=== PATIENT | male | born 1995 | race Caucasian/White ===

== ENCOUNTER 2022-07-10 14:58 | Outpatient (CLI) | payer BC, SELFPAY ==
[2022-07-10 19:15] LABS: Amphetamine Screen Urine Negative (Negative); Barbiturate Screen Urine Negative (Negative); Benzodiazepines Screen Urine Negative (Negative); Cannabinoid Screen Urine Negative (Negative); Cocaine Screen Urine Negative (Negative); Methadone Screen Urine Negative (Negative); Methamphetamines Screen Urine Negative (Negative); Opiate Screen Urine Negative (Negative); Oxycodone Screen Urine Negative (Negative); Phencyclidine Screen Urine Negative (Negative); Tricyclic Antidepressant Urine Negative (Negative)
== END 2022-07-10 14:59 | disposition home or self-care (01) ==
LOC: NFLDREF 15:01
PROVIDERS: PCP Family Medicine; Visit Provider Family Medicine
DX: F90.0 Attention-deficit hyperactivity disorder, predominantly inattentive type (principal)
CPT/HCPCS: 80306

== ENCOUNTER 2023-11-03 20:15 | Outpatient (CLI) | payer MEDICAID, SELFPAY | END 2023-11-03 20:16 | disposition home or self-care (01) | LOC: AMB 11-08 02:41 | PROVIDERS: PCP Family Medicine; Visit Provider Emergency Medicine Emergency Medical Services | DX: R45.851 Suicidal ideations (principal) | CPT/HCPCS: A0425; A0429 ==

== ENCOUNTER 2024-02-22 19:27 | Emergency (ER) | payer MEDICAID, SELFPAY ==
[2024-02-22 19:33] VITALS: BP 152/110; PULSE 114; RESP 16; TEMP 36.6; O2SAT 94; BMI 25.4
[2024-02-22 20:15] LABS: Basophils Absolute Auto 0.01 K/uL (0.00-0.30); Basophils Percent Auto 0.2 % (0.0-3.0); Eosinophils Absolute Auto 0.02 K/uL (0.00-0.50); Eosinophils Percent Auto 0.3 % (0.0-7.0); Hematocrit 45.7 % (37.0-53.0); Hemoglobin* 15.7 gm/dL (13.5-17.5); Immature Granulocytes Abs Auto 0.01 K/uL (0.00-0.30); Immature Granulocytes Pct Auto 0.2 %; Lymphocytes Absolute Auto 2.19 K/uL (0.90-2.90); Lymphocytes Percent Auto 35.9 % (20-44); Mean Corpuscular HGB Conc 34 gm/dL (32-36); Mean Corpuscular Hemoglobin 33 pg (26-34); Mean Corpuscular Volume 95 fL (80-100); Monocytes Percent Auto 6.6 % (0.0-11.0); Neutrophils Absolute Auto 3.47 K/uL (1.7-7.0); Neutrophils Percent Auto 56.8 % (42.0-72.0); Platelet Count* 240 K/uL (140-440); RDW Coefficient of Variation % 12.9 % (11.5-15.5); Red Blood Count 4.83 m/uL (4.30-5.90)
[2024-02-22 20:28] LABS: Slide Review Reflex No
[2024-02-22 20:29] LABS: Chloride* 104 mmol/L (96-114); Potassium* 3.7 mmol/L (3.6-5.1); Sodium* 143 mmol/L (135-149)
[2024-02-22 20:30] VITALS: BP 119/77; PULSE 103
--- NOTE | 2024-02-22 20:30 | ED_ITS ---
HPI - Psych General Date Seen: 02/22/24 <Federico Valenzuela - Last Filed: 02/23/24 16:09> Chief Complaint: Psychiatric Problem/Disorder <Federico Valenzuela - Last Filed: 02/23/24 16:09> Stated Complaint: Mental health <Federico Valenzuela - Last Filed: 02/23/24 16:09> Time Seen by Provider: 02/22/24 19:29 <Federico Valenzuela - Last Filed: 02/23/24 16:09> Source: patient <Federico P Nicolas - Last Filed: 02/23/24 16:09> Mode of arrival: ambulatory <Federico Valenzuela - Last Filed: 02/23/24 16:09> Limitations: no limitations <Federico Valenzuela - Last Filed: 02/23/24 16:09> History of Present Illness HPI Narrative: Patient is a 28-year-old male presenting to the emergency department for a mental health evaluation. He is brought in by his friend. He states he has been having issues on home for the past few days. Him and his ex girlfriend recently broke up also. Today it he drink a L of fireball whiskey an also admits to drinking heavily yesterday. Last had the alcohol earlier this morning. He was depressed and put a gun up to his head but then put it down and called his friend who brought him to the emergency department. He does state he has a history of alcohol use disorder and was sober for 6 months but relapsed 3 months ago. Today his mom told him she wanted him gone in out of the house. He states he does have a place to stay at the moment. He is not sure if he will hurt himself if he goes home or not. <Federico Valenzuela DO - Last Filed: 02/23/24 16:09> Related Data Allergies/Adverse Reactions: Allergies Allergy/AdvReac Type Severity Reaction Status Date / Time atomoxetine Allergy Intermediate vomiting Verified 10/26/23 11:18 and cold sweats <Federico Valenzuela DO - Last Filed: 02/23/24 16:09> Review of Systems Status of ROS: Reports: 10 or more systems reviewed and unremarkable except as noted in History and below <Federico Valenzuela DO - Last Filed: 02/23/24 16:09> [facility] Medical History: Medical History Major depressive disorder, single episode, in full remission ?F32.5 - Major depressive disorder, single episode, in full remission (ICD- 10) ADHD, predominantly inattentive type ?F90.0 - Attention-deficit hyperactivity disorder, predominantly inattentive type (ICD-10) Anxiety ?F41.9 - Anxiety disorder, unspecified (ICD-10) <Federico Valenzuela DO - Last Filed: 02/23/24 16:09> Surgical History: Surgical History S/P orchiopexy ?Z98.890 - Other specified postprocedural states (ICD-10) History of tonsillectomy and adenoidectomy (05/07/09) ?Z90.89 - Acquired absence of other organs (ICD-10) <Federico Valenzuela DO - Last Filed: 02/23/24 16:09> Social History: Social History Narrative: Alcohol abuse - see note from 03/12/22, has quit drinking, single, no kids What is your current living situation?: I presently have a place to live Problems where you live: no known problems In the past 12 months, utilities in danger of being shut off: no In past 12 months, lack of transportation kept you from medical appts, meetings, work, or getting things needed for daily living: no In the past 12 mos, have been you worried that your food would run out before you had money to buy more?: never true In the past 12 mos, the food you bought just didn't last and you didn't have money to buy more?: never true Smoking Status: Never smoker How often do you have a drink containing alcohol: 4 or more times a week How many standard drinks containing alcohol do you have on a typical day: 10 or more How often do you have six or more drinks on one occasion: Daily or almost daily AUDIT-C Alcohol total score: 12 Non-prescribed substance use: denies use How often does anyone, including family, friends and others, physically hurt you : never How often does anyone, including family, friends and others, insult or talk down to you: never How often does anyone, including family, friends and others, threaten you with harm: never How often does anyone, including family, friends and others, scream or curse at you: never Little interest or pleasure in doing things: not at all Feeling down, depressed, or hopeless: not at all <Federico Valenzuela DO - Last Filed: 02/23/24 16:09> Exam Narrative: Exam Narrative: Const: Well-nourished, Well-developed, in mild distress Eyes: PERRL, no conjunctival injection, and symmetrical lids HENT: Atraumatic external nose and ears. Moist mucous membranes. Neck: Symmetric, trachea midline, No thyromegaly. CVS: RRR, No murmurs or gallops. Peripheral pulses 2+ and equal in all extremities RESP: Unlabored respiratory effort. Clear to auscultation bilaterally. GI: Nontender/Nondistended, No rebound or guarding. MSK:Extremities w/o deformity, Normal Active ROM Skin: Warm, Dry. No rashes or lesions. Neuro: Normal Muscle tone, No focal neurological deficits. Psych: Awake, Alert, & Oriented x3. Appropriate mood and affect. <Federico Valenzuela DO - Last Filed: 02/23/24 16:09> Const: Vital Signs, click to edit/add: Vital Signs - 24 hr 02/22/24 19:33 02/22/24 20:30 02/23/24 00:54 Temperature 97.9 F 97.7 F Pulse Rate [Pulse Oximeter] 114 H 103 H 98 Respiratory Rate 16 16 Blood Pressure [Ri ght Upper Arm] 152/110 H 119/77 101/81 Pulse Oximetry 94 98 Oxygen Delivery Me thod Room Air Room Air 02/23/24 02:54 02/23/24 04:25 Temperature 97.8 F Pulse Rate [Pulse Oximeter] 88 109 H Respiratory Rate 16 18 Blood Pressure [Ri ght Upper Arm] 126/81 Pulse Oximetry 98 98 Oxygen Delivery Me thod Room Air Room Air <Federico Valenzuela DO - Last Filed: 02/23/24 16:09> Vital Signs, click to edit/add: Vital Signs - 24 hr 02/22/24 19:33 02/22/24 20:30 02/23/24 00:54 Temperature 97.9 F 97.7 F Pulse Rate [Pulse Oximeter] 114 H 103 H 98 Respiratory Rate 16 16 Blood Pressure [Ri ght Upper Arm] 152/110 H 119/77 101/81 Pulse Oximetry 94 98 Oxygen Delivery Me thod Room Air Room Air 02/23/24 02:54 02/23/24 04:25 Temperature 97.8 F Pulse Rate [Pulse Oximeter] 88 109 H Respiratory Rate 16 18 Blood Pressure [Ri ght Upper Arm] 126/81 Pulse Oximetry 98 98 Oxygen Delivery Me thod Room Air Room Air <Cassie Marques MD - Last Filed: 02/23/24 06:47> Course Consultations Consultation #1: Silvia Freeman from [facility] interviewed the patient and his mom. She finds Abran to be motivated, has a desire to sober up and wants treatment. He admits he has alcoholic, admits he came here for the chance to sober up. He has a chemical dependency provider that can do an assessment. Silvia and could not get him 1 scheduled within a month's time. He states he has the chemical dependency assessors phone number in his phone and will call for assessment later today. He actually has no alcohol use as a condition of a current probation. Breaking that could potentially have consequences of going to correction. Silvia and also spoke with his mom. All of the guns are actually locked up and in a safe, he did not gain access to this safe. She states that she can see where the safe was moved, that he had tried to get in it but he did not get to any guns. She will continue to keep these guns locked away and continue to monitor that. Silvia and will be sending a safety plan. Patient's mom and patient are in agreement with Silvia Freeman's plan. Patient really does need treatment at hopefully will follow through with his plan to get the chemical dependency assessment done. <Cassie Marques MD - Last Filed: 02/23/24 06:47> Time: 06:42 <Cassie Marques MD - Last Filed: 02/23/24 06:47> Vital Signs Vital signs: Initial Vital Signs Temperature 97.9 F 02/22/24 19:33 Temperature Source Temporal Artery Scan 02/22/24 19:33 Pulse Rate 114 H 02/22/24 19:33 Respiratory Rate 16 02/22/24 19:33 Blood Pressure 152/110 H 02/22/24 19:33 Blood Pressure Mean 124 H 02/22/24 19:33 Blood Pressure Position Sitting 02/22/24 19:33 Pulse Oximetry 94 02/22/24 19:33 Oxygen Delivery Method Room Air 02/22/24 19:33 Vital Signs Temperature 97.9 F 02/22/24 19:33 Pulse Rate 114 H 02/22/24 19:33 Respiratory Rate 16 02/22/24 19:33 Blood Pressure 152/110 H 02/22/24 19:33 Pulse Oximetry 94 02/22/24 19:33 Oxygen Delivery Method Room Air 02/22/24 19:33 Temperature 97.8 F 02/23/24 04:25 Pulse Rate 109 H 02/23/24 04:25 Respiratory Rate 18 02/23/24 04:25 Blood Pressure 126/81 02/23/24 04:25 Pulse Oximetry 98 02/23/24 04:25 Oxygen Delivery Method Room Air 02/23/24 04:25 <Federico Valenzuela, DO - Last Filed: 02/23/24 16:09> Initial Vital Signs Temperature 97.9 F 02/22/24 19:33 Temperature Source Temporal Artery Scan 02/22/24 19:33 Pulse Rate 114 H 02/22/24 19:33 Respiratory Rate 16 02/22/24 19:33 Blood Pressure 152/110 H 02/22/24 19:33 Blood Pressure Mean 124 H 02/22/24 19:33 Blood Pressure Position Sitting 02/22/24 19:33 Pulse Oximetry 94 02/22/24 19:33 Oxygen Delivery Method Room Air 02/22/24 19:33 Vital Signs Temperature 97.9 F 02/22/24 19:33 Pulse Rate 114 H 02/22/24 19:33 Respiratory Rate 16 02/22/24 19:33 Blood Pressure 152/110 H 02/22/24 19:33 Pulse Oximetry 94 02/22/24 19:33 Oxygen Delivery Method Room Air 02/22/24 19:33 Temperature 97.8 F 02/23/24 04:25 Pulse Rate 109 H 02/23/24 04:25 Respiratory Rate 18 02/23/24 04:25 Blood Pressure 126/81 02/23/24 04:25 Pulse Oximetry 98 02/23/24 04:25 Oxygen Delivery Method Room Air 02/23/24 04:25 <Cassie Marques MD - Last Filed: 02/23/24 06:47> Medications Administered Medications: Discontinued Medications Generic Name Dose Route Start Last Admin Trade Name Freq PRN Reason Stop Dose Admin Lorazepam 1 mg 02/22/24 21:58 02/23/24 04:57 Lorazepam 1 Mg Tablet PO 1 mg Q4H PRN Administration Lorazepam 1 mg 02/22/24 21:58 02/22/24 22:00 Lorazepam 1 Mg Tablet PO 02/22/24 21:59 1 mg ONCE ONE Administration Nicotine 1 patch 02/22/24 21:00 02/22/24 21:48 Nicotine 14 Mg Patch TRANSDERMA 1 patch Q24H PARRISH Administration <Federico Valenzuela DO - Last Filed: 02/23/24 16:09> Discontinued Medications Generic Name Dose Route Start Last Admin Trade Name Freq PRN Reason Stop Dose Admin Lorazepam 1 mg 02/22/24 21:58 02/23/24 04:57 Lorazepam 1 Mg Tablet PO 1 mg Q4H PRN Administration Lorazepam 1 mg 02/22/24 21:58 02/22/24 22:00 Lorazepam 1 Mg Tablet PO 02/22/24 21:59 1 mg ONCE ONE Administration Nicotine 1 patch 02/22/24 21:00 02/22/24 21:48 Nicotine 14 Mg Patch TRANSDERMA 1 patch Q24H PARRISH Administration <Cassie Marques MD - Last Filed: 02/23/24 06:47> MDM - Psych MDM Narrative Medical decision making narrative: Patient is a 28-year-old male presenting to the emergency department for mental health evaluation. Based on his initial comments there is concerned about him harming himself if he would go home. Do that we will have him evaluated by DEC. Will also do a drug screen, COVID test, urinalysis, acetaminophen, salicylate level, BMP, CBC. Also ordered TSH and ETOH levels. Drug screen came back positive for marijuana. I so lab work is not concerning other than he has an ETOH of 0.36. But clinically is answering questions appropriately he is not able to be safely evaluated for need for inpatient treatment at this time considering his alcohol intoxication. He started to get upset and wanting to leave. I explained to him that if he tries the will place him on 72 hour hold. He was then given some Ativan for his anxiety. This will be scheduled p.r.n. for anxiety. At this time he will be signed out to my colleague pending DEC evaluation likely in the morning. <Federico Valenzuela, DO - Last Filed: 02/23/24 16:09> Lab Data Labs: Lab Results 02/22/24 02/22/24 02/22/24 Range/Units 19:39 20:05 20:20 WBC 6.10 (4.50-11.00) K/uL RBC 4.83 (4.30-5.90) m/uL Hgb 15.7 (13.5-17.5) gm/dL Hct 45.7 (37.0-53.0) % MCV 95 (80-100) fL MCH 33 (26-34) pg MCHC 34 (32-36) gm/dL RDW Coeff of Gaby 12.9 (11.5-15.5) % Plt Count 240 (140-440) K/uL Neut % (Auto) 56.8 (42.0-72.0) % Lymph % (Auto) 35.9 (20-44) % [place] % (Auto) 6.6 (0.0-11.0) % Eos % (Auto) 0.3 (0.0-7.0) % Baso % (Auto) 0.2 (0.0-3.0) % Neut # (Auto) 3.47 (1.7-7.0) K/uL Lymph # (Auto) 2.19 (0.90-2.90) K/uL [place] # (Auto) 0.40 (0.00-0.90) K/UL Eos # (Auto) 0.02 (0.00-0.50) K/uL Baso # (Auto) 0.01 (0.00-0.30) K/uL Abs Immat Gran (auto) 0.01 (0.00-0.30) K/uL Imm/Tot Granulo (auto) 0.2 % Sodium 143 (135-149) mmol/L Potassium 3.7 (3.6-5.1) mmol/L Chloride 104 (96-114) mmol/L Carbon Dioxide 28 (20-32) mmol/L Anion Gap 11 (7-15) mEq/L BUN 9 (5-24) mg/dL Creatinine 0.8 (0.5-1.5) mg/dL Estimated Creat Clear 179.31 Estimated GFR 124 ml/min Glucose 110 (60-115) mg/dL Calcium 8.8 (8.4-10.6) mg/dL TSH 0.883 (0.270-4.20) uIU/mL Urine Color Yellow (Yellow) Urine Appearance Clear (Clear) Urine pH 7.0 (5.0-8.5) Ur Specific [place] 1.015 (1.000-1.030) Urine Protein 1+ A (Negative) Urine Glucose (UA) Negative (Negative) Urine Ketones Negative (Negative) Urine Blood Negative (Negative) Urine Nitrite Negative (Negative) Urine Bilirubin Negative (Negative) Urine Urobilinogen 0.2 (0.2-1.0) Ur Leukocyte Esterase Negative (Negative) Urine RBC 0-2 (0-2) Urine WBC 0-2 (0-5) Ur Squamous Epith Cells None (None-Few) Urine Bacteria None (None) Salicylates < 1.0 L (1.0-10) mg/dL Urine Opiates Screen Negative (Negative) Ur Oxycodone Screen Negative (Negative) Urine Methadone Screen Negative (Negative) Acetaminophen < 10.0 L (10.0-30.0) ug/mL Ur Barbiturates Screen Negative (Negative) U Tricyclic Antidepress Negative (Negative) Ur Phencyclidine Scrn Negative (Negative) Ur Amphetamines Screen Negative (Negative) U Methamphetamines Scrn Negative (Negative) U Benzodiazepines Scrn Negative (Negative) Urine Cocaine Screen Negative (Negative) U Marijuana (THC) Screen POSITIVE A (Negative) Ur Drug Screen Comment See Note Ethyl Alcohol 0.36 H* (0.01-0.03) % SARS-CoV-2 (PCR) Negative SARS-CoV-2 (Negative) <Federico Valenzuela, DO - Last Filed: 02/23/24 16:09> Lab Results 02/22/24 02/22/24 02/22/24 Range/Units 19:39 20:05 20:20 WBC 6.10 (4.50-11.00) K/uL RBC 4.83 (4.30-5.90) m/uL Hgb 15.7 (13.5-17.5) gm/dL Hct 45.7 (37.0-53.0) % MCV 95 (80-100) fL MCH 33 (26-34) pg MCHC 34 (32-36) gm/dL RDW Coeff of Gaby 12.9 (11.5-15.5) % Plt Count 240 (140-440) K/uL Neut % (Auto) 56.8 (42.0-72.0) % Lymph % (Auto) 35.9 (20-44) % [place] % (Auto) 6.6 (0.0-11.0) % Eos % (Auto) 0.3 (0.0-7.0) % Baso % (Auto) 0.2 (0.0-3.0) % Neut # (Auto) 3.47 (1.7-7.0) K/uL Lymph # (Auto) 2.19 (0.90-2.90) K/uL [place] # (Auto) 0.40 (0.00-0.90) K/UL Eos # (Auto) 0.02 (0.00-0.50) K/uL Baso # (Auto) 0.01 (0.00-0.30) K/uL Abs Immat Gran (auto) 0.01 (0.00-0.30) K/uL Imm/Tot Granulo (auto) 0.2 % Sodium 143 (135-149) mmol/L Potassium 3.7 (3.6-5.1) mmol/L Chloride 104 (96-114) mmol/L Carbon Dioxide 28 (20-32) mmol/L Anion Gap 11 (7-15) mEq/L BUN 9 (5-24) mg/dL Creatinine 0.8 (0.5-1.5) mg/dL Estimated Creat Clear 179.31 Estimated GFR 124 ml/min Glucose 110 (60-115) mg/dL Calcium 8.8 (8.4-10.6) mg/dL TSH 0.883 (0.270-4.20) uIU/mL Urine Color Yellow (Yellow) Urine Appearance Clear (Clear) Urine pH 7.0 (5.0-8.5) Ur Specific [place] 1.015 (1.000-1.030) Urine Protein 1+ A (Negative) Urine Glucose (UA) Negative (Negative) Urine Ketones Negative (Negative) Urine Blood Negative (Negative) Urine Nitrite Negative (Negative) Urine Bilirubin Negative (Negative) Urine Urobilinogen 0.2 (0.2-1.0) Ur Leukocyte Esterase Negative (Negative) Urine RBC 0-2 (0-2) Urine WBC 0-2 (0-5) Ur Squamous Epith Cells None (None-Few) Urine Bacteria None (None) Salicylates < 1.0 L (1.0-10) mg/dL Urine Opiates Screen Negative (Negative) Ur Oxycodone Screen Negative (Negative) Urine Methadone Screen Negative (Negative) Acetaminophen < 10.0 L (10.0-30.0) ug/mL Ur Barbiturates Screen Negative (Negative) U Tricyclic Antidepress Negative (Negative) Ur Phencyclidine Scrn Negative (Negative) Ur Amphetamines Screen Negative (Negative) U Methamphetamines Scrn Negative (Negative) U Benzodiazepines Scrn Negative (Negative) Urine Cocaine Screen Negative (Negative) U Marijuana (THC) Screen POSITIVE A (Negative) Ur Drug Screen Comment See Note Ethyl Alcohol 0.36 H* (0.01-0.03) % SARS-CoV-2 (PCR) Negative SARS-CoV-2 (Negative) <Cassie Marques MD - Last Filed: 02/23/24 06:47> Discharge Plan Discharge Clinical Impression: Suicidal ideation Alcohol intoxication Qualifiers: Complication of substance-induced condition: uncomplicated Qualified Code(s): F10.920 - Alcohol use, unspecified with intoxication, uncomplicated <Federico Valenzuela DO - Last Filed: 02/23/24 16:09> Patient Disposition: Home, Self-Care <Federico Valenzuela DO - Last Filed: 02/23/24 16:09> Condition: Stable <Federico Valenzuela DO - Last Filed: 02/23/24 16:09> Instructions: Alcohol Use Disorder (ED), Suicide Prevention (ED) <Federico Valenzuela DO - Last Filed: 02/23/24 16:09> Additional Instructions: Contact the chemical dependency guest service representative so that you can get back in to treatment for alcohol. It is imperative that you refrain from alcohol use. If you are having worsening mental health issues, feel you are suicidal, please seek re-evaluation. <Federico Valenzuela DO - Last Filed: 02/23/24 16:09> Follow Up/Referrals: Wilson Mena MD [Primary Care Provider] - <Federico Valenzuela DO - Last Filed: 02/23/24 16:09> Stand Alone Forms: [email or web address] Info Instructions <Federico Valenzuela DO - Last Filed: 02/23/24 16:09>
[2024-02-22 20:32] LABS: Anion Gap 11 mEq/L (7-15); Blood Urea Nitrogen* 9 mg/dL (5-24); Carbon Dioxide* 28 mmol/L (20-32); Creatinine* 0.8 mg/dL (0.5-1.5); Est. Creatinine Clearance* 179.31; Estimated Glomerular Filt Rate 124 ml/min; Glucose* 110 mg/dL (60-115)
[2024-02-22 20:33] LABS: Calcium* 8.8 mg/dL (8.4-10.6)
[2024-02-22 20:36] LABS: SARS PCR* Negative SARS-CoV-2 (Negative)
[2024-02-22 20:42] LABS: Acetaminophen* < 10.0 ug/mL (10.0-30.0); Salicylate* < 1.0 mg/dL (1.0-10)
[2024-02-22 20:43] LABS: Ethanol* 0.36 % (0.01-0.03)
[2024-02-22 20:46] LABS: Appearance Urine Clear (Clear); Bilirubin Urine Negative (Negative); Blood Urine Negative (Negative); Color Urine Yellow (Yellow); Glucose Urine Negative (Negative); Ketones Urine Negative (Negative); Leukocyte Esterase Urine Negative (Negative); Nitrite Urine Negative (Negative); Protein Urine 1+ (Negative); Specific Gravity Urine 1.015 (1.000-1.030); Urobilinogen Urine 0.2 (0.2-1.0)
[2024-02-22 20:52] LABS: Amphetamine Screen Urine Negative (Negative); Barbiturate Screen Urine Negative (Negative); Benzodiazepines Screen Urine Negative (Negative); Cannabinoid Screen Urine POSITIVE (Negative); Cocaine Screen Urine Negative (Negative); Methadone Screen Urine Negative (Negative); Methamphetamines Screen Urine Negative (Negative); Opiate Screen Urine Negative (Negative); Oxycodone Screen Urine Negative (Negative); Phencyclidine Screen Urine Negative (Negative); Tricyclic Antidepressant Urine Negative (Negative)
[2024-02-22 21:03] LABS: RBC Urine 0-2 (0-2); WBC Urine 0-2 (0-5)
[2024-02-22 21:27] LABS: Thyroid Stimulating Hormone* 0.883 uIU/mL (0.270-4.20)
[2024-02-22] MEDS: NICOTINE 14 mg PATCH 1 PATCH TRANSDERMA (21:48)
[2024-02-22] MEDS: LORazepam 1 MG TABLET PO (22:00)
[2024-02-23 00:54] VITALS: BP 101/81; PULSE 98; RESP 16; TEMP 36.5; O2SAT 98
[2024-02-23] MEDS: LORazepam 1 MG TABLET PO ×2 (00:56→04:57)
[2024-02-23 02:54] VITALS: PULSE 88; RESP 16; O2SAT 98
[2024-02-23 04:25] VITALS: BP 126/81; PULSE 109; RESP 18; TEMP 36.6; O2SAT 98
--- NOTE | 2024-02-23 04:26 | PC.NURSE ---
Pt states he is feeling much better, states he was able to get some sleep. Requesting ativan. .
== END 2024-02-23 08:16 | disposition home or self-care (01) ==
PROVIDERS: Emergency Provider Student in an Organized Health Care Education/Training Program; PCP Family Medicine
DX: F10.129 Alcohol abuse with intoxication, unspecified (principal); R45.851 Suicidal ideations
CPT/HCPCS: 36415; 80048; 80143; 80179; 80306; 81001; 82077; 84443; 85025; 87635; 99283; A9270; S4990